=== PATIENT | female | born 1945 | race Caucasian/White ===

== ENCOUNTER 2023-12-02 20:28 | Emergency (ER) | payer MEDICARE, OTHER ==
[~2023-12-02] VITALS: Ht 152.4 cm; Wt 65.8 kg
[2023-12-02] MEDS: ONDANSETRON 4 MG TAB.RAPDIS SL ONE (22:27)
[2023-12-02] MEDS: ACETAMINOPHEN 325 MG TABLET PO ONE (22:27)
[2023-12-02] MEDS ORDERED: ONDANSETRON 4 MG TAB.RAPDIS ONE (22:29)
[2023-12-02] MEDS ORDERED: ACETAMINOPHEN ES 500 MG TABLET ONE (22:29)
[2023-12-02 23:47] LABS: APPEARANCE,URINE SLIGHTLY CLOUDY (CLEAR); BILIRUBIN,URINE NEGATIVE (NEGATIVE); BLOOD, URINE 2+ Ery/uL (NEGATIVE); COLOR,URINE YELLOW (YELLOW); KETONES,URINE NEGATIVE (NEGATIVE); LEUKOCYTE ESTERASE ,URINE 1+ (NEGATIVE); NITRITE, URINE NEGATIVE (NEGATIVE); PROTEIN,URINE 2+ mg/dl (NEGATIVE); UGLUCOSE NEGATIVE (NEGATIVE); UROBILINOGEN,URINE 0.2 EU/dL (0.2)
[2023-12-02 23:57] LABS: ADD URINE CULTURE YES; BACTERIA,URINE 2+ /HPF (None Seen); MUCUS,URINE Moderate /LPF (None Seen); WBC,URINE 21-50 /HPF (0-3)
[2023-12-03] MEDS ORDERED: NITR100C6 PO (00:01)
[2023-12-03] MEDS ORDERED: NITROFURANTOIN/MONOHYDRATE MACROCRYSTALS 100 MG CAPSULE ONE (00:12)
[2023-12-03] MEDS: NITROFURANTOIN/MONOHYDRATE MACROCRYSTALS 100 MG CAPSULE PO ONE (00:17)
[2023-12-03 00:21] VITALS: BP 146/98; TEMP 99.6; O2SAT 97
== END 2023-12-03 00:36 | disposition home or self-care (01) ==
LOC: ER 20:36
DX: N39.0 Urinary tract infection, site not specified (principal); R50.9 Fever, unspecified; I10 Essential (primary) hypertension; Z79.899 Other long term (current) drug therapy
CPT/HCPCS: 99284; 71045; 87086; 81001; Q0162

== ENCOUNTER 2023-12-05 11:45 | Inpatient (IN) | payer OTHER, MEDICARE ==
[~2023-12-05] VITALS: Ht 160 cm; Wt 65.8 kg
[~2023-12-05 11:45] MED LIST: NITR100C6 PO
[2023-12-05 12:29] LABS: APPEARANCE,URINE SLIGHTLY CLOUDY (CLEAR); BILIRUBIN,URINE 1+ (NEGATIVE); BLOOD, URINE 2+ Ery/uL (NEGATIVE); COLOR,URINE YELLOW (YELLOW); KETONES,URINE TRACE mg/dL (NEGATIVE); LEUKOCYTE ESTERASE ,URINE TRACE (NEGATIVE); NITRITE, URINE NEGATIVE (NEGATIVE); PH,URINE 5.5 (5.0-8.0); PROTEIN,URINE 2+ mg/dl (NEGATIVE); UGLUCOSE NEGATIVE (NEGATIVE)
[2023-12-05 12:34] LABS: CALCIUM, SERUM 9.2 mg/dL (8.5-10.1); CARBON DIOXIDE 23 mmol/L (21-32); CHLORIDE 102 mmol/L (98-107); CREATININE 2.4 mg/dL (0.6-1.3); GLUCOSE 114 mg/dL (74-106); SODIUM SERUM 137 mmol/L (136-145); UREA NITROGEN, BLOOD 45 mg/dL (7-18)
[2023-12-05 12:40] LABS: URINE AMORPHOUS URATE Many /HPF (None Seen)
[2023-12-05 12:41] LABS: BACTERIA,URINE Moderate /HPF (None Seen); SQUAMOUS EPITHELIAL CELL,UR Moderate /HPF (None Seen)
[2023-12-05 12:43] LABS: ADD URINE CULTURE YES
[2023-12-05 12:44] LABS: ALANINE AMINOTRANSFERASE 14 U/L (12-78); ALBUMIN 2.6 g/dL (3.4-5.0); ALKALINE PHOSPHATASE 115 U/L (46-116); ASPARTATE AMINOTRANSFERASE 19 U/L (15-37); BASOPHILS % (AUTO) 0.2 % (0.0-2.0); BILIRUBIN,DIRECT 0.2 mg/dL (0.0-0.2); BILIRUBIN,TOTAL 0.6 mg/dL (0.2-1.0); EOSINOPHILS % (AUTO) 0.4 % (0.0-6.0); HEMATOCRIT 37 % (33-45); HEMOGLOBIN 12.2 g/dL (11.5-14.8); LIPASE 85 U/L (16-77); LYMPHOCYTES # (AUTO) 1.1 K/uL (0.8-4.8); LYMPHOCYTES % (AUTO) 9.9 % (20.0-44.0); MEAN CORPUSCULAR HEMOGLOBIN 31 PG (26.0-33.0); MEAN CORPUSCULAR HGB CONC 33 g/dl (31.0-36.0); MEAN CORPUSCULAR VOLUME 94 fL (82-100); MONOCYTES % (AUTO) 9.5 % (2.0-12.0); NEUTROPHILS # (AUTO) 8.6 K/uL (1.8-8.9); PLATELET COUNT (AUTO) 296 K/uL (150-450); RED BLOOD CELL COUNT(AUTO) 3.95 MIL/uL (4.0-5.2); RED CELL DISTRIBUTION WIDTH 14.3 % (11.5-15.0); TOTAL PROTEIN, SERUM 8.4 g/dL (6.4-8.2); WHITE BLOOD COUNT (AUTO) 10.7 K/uL (4.3-11.0)
[2023-12-05] MEDS ORDERED: CEFTRIAXONE 1GM BAG (ER ONLY) 50 ML IV ONE (13:20)
[2023-12-05] MEDS: IV NS 0.9% 1,000 ML BAG IV ONE ×2 (13:23→15:00)
[2023-12-05] MEDS: CEFTRIAXONE 1 G in IV D5W 50 ML IV ONE (13:24)
[2023-12-05] MEDS ORDERED: BENA40TA8 PO (13:46)
[2023-12-05] MEDS ORDERED: AMLO-212 PO (13:46)
[2023-12-05 14:56] LABS: LACTIC ACID 2.3 mmol/L (0.4-2.0)
[2023-12-05] MEDS ORDERED: ONDANSETRON HCL/PF 4 MG/2 ML VIAL IVP PRN (16:00)
[2023-12-05] MEDS: ACETAMINOPHEN 325 MG TABLET PO PRN (16:55)
[2023-12-05 20:00] VITALS: BP 114/65; TEMP 98.4; O2SAT 95
[2023-12-05] MEDS: HEPARIN SODIUM, PORCINE 5000 UNITS/1 ML VIAL SQ SCH (21:28)
[2023-12-05 22:00] VITALS: BP 121/61; TEMP 99.1; O2SAT 94
[2023-12-06] VITALS: BP_SYST 121; BP_DIAS 60; BP_DIAS 61; TEMP 98.1; TEMP 99.1; O2SAT 94
[2023-12-06 04:00] VITALS: BP 114/59; TEMP 99.9; O2SAT 95
[2023-12-06 07:36] LABS: BASOPHILS % (AUTO) 0.2 % (0.0-2.0); EOSINOPHILS # (AUTO) 0.1 K/uL (0.0-0.7); EOSINOPHILS % (AUTO) 0.7 % (0.0-6.0); HEMATOCRIT 34 % (33-45); HEMOGLOBIN 11.4 g/dL (11.5-14.8); LYMPHOCYTES # (AUTO) 0.9 K/uL (0.8-4.8); LYMPHOCYTES % (AUTO) 10.4 % (20.0-44.0); MEAN CORPUSCULAR HEMOGLOBIN 31 PG (26.0-33.0); MEAN CORPUSCULAR HGB CONC 33 g/dl (31.0-36.0); MEAN CORPUSCULAR VOLUME 94 fL (82-100); MONOCYTES # (AUTO) 0.9 K/uL (0.1-1.30); MONOCYTES % (AUTO) 10.6 % (2.0-12.0); NEUTROPHILS # (AUTO) 6.6 K/uL (1.8-8.9); NEUTROPHILS % (AUTO) 78.1 % (43.0-81.0); PLATELET COUNT (AUTO) 243 K/uL (150-450); RED BLOOD CELL COUNT(AUTO) 3.63 MIL/uL (4.0-5.2); RED CELL DISTRIBUTION WIDTH 14.6 % (11.5-15.0); WHITE BLOOD COUNT (AUTO) 8.4 K/uL (4.3-11.0)
[2023-12-06 08:00] VITALS: BP 122/58; TEMP 99.1; O2SAT 95
[2023-12-06 08:11] LABS: CALCIUM, SERUM 8.4 mg/dL (8.5-10.1); CARBON DIOXIDE 21 mmol/L (21-32); CHLORIDE 109 mmol/L (98-107); CREATININE 1.7 mg/dL (0.6-1.3); GLUCOSE 88 mg/dL (74-106); MAGNESIUM 1.9 mg/dL (1.8-2.4); POTASSIUM 4.1 mmol/L (3.5-5.1); SODIUM SERUM 141 mmol/L (136-145); UREA NITROGEN, BLOOD 32 mg/dL (7-18)
[2023-12-06] MEDS: AMLODIPINE BESYLATE 5 MG TABLET PO SCH (08:46)
[2023-12-06] MEDS: CEFTRIAXONE 2 G in IV D5W 100 ML IV SCH (12:40)
[2023-12-06] MEDS ORDERED: CEFTRIAXONE 1 G in IV D5W 50 ML IV SCH (13:00)
[2023-12-06] MEDS: IV NS 0.9% 1,000 ML IV PRN (15:21)
[2023-12-06 16:00] VITALS: BP 120/58; TEMP 99.7; O2SAT 92
[2023-12-07] VITALS: BP 121/60; TEMP 98.1; O2SAT 92
[2023-12-07 07:01] LABS: BASOPHILS # (AUTO) 0.1 K/uL (0.0-0.2); BASOPHILS % (AUTO) 0.9 % (0.0-2.0); EOSINOPHILS # (AUTO) 0.1 K/uL (0.0-0.7); HEMATOCRIT 34 % (33-45); HEMOGLOBIN 11.1 g/dL (11.5-14.8); LYMPHOCYTES # (AUTO) 1.2 K/uL (0.8-4.8); LYMPHOCYTES % (AUTO) 19.6 % (20.0-44.0); MEAN CORPUSCULAR HEMOGLOBIN 32 PG (26.0-33.0); MEAN CORPUSCULAR HGB CONC 33 g/dl (31.0-36.0); MEAN CORPUSCULAR VOLUME 95 fL (82-100); MONOCYTES # (AUTO) 0.8 K/uL (0.1-1.30); MONOCYTES % (AUTO) 12.4 % (2.0-12.0); NEUTROPHILS % (AUTO) 65.1 % (43.0-81.0); PLATELET COUNT (AUTO) 280 K/uL (150-450); RED BLOOD CELL COUNT(AUTO) 3.54 MIL/uL (4.0-5.2); RED CELL DISTRIBUTION WIDTH 14.7 % (11.5-15.0); WHITE BLOOD COUNT (AUTO) 6.1 K/uL (4.3-11.0)
[2023-12-07 07:27] LABS: CALCIUM, SERUM 8.4 mg/dL (8.5-10.1); CARBON DIOXIDE 23 mmol/L (21-32); CHLORIDE 113 mmol/L (98-107); CREATININE 1.4 mg/dL (0.6-1.3); GLUCOSE 100 mg/dL (74-106); MAGNESIUM 1.7 mg/dL (1.8-2.4); PHOSPHORUS 2.4 mg/dL (2.5-4.9); POTASSIUM 3.7 mmol/L (3.5-5.1); SODIUM SERUM 145 mmol/L (136-145); UREA NITROGEN, BLOOD 21 mg/dL (7-18)
[2023-12-07 08:00] VITALS: BP 139/64; TEMP 97.4; O2SAT 92
[2023-12-07] MEDS: NEUTRA PHOS 1 POWD.PACKET PO SCH (09:58)
[2023-12-07] MEDS: Magnesium 1GM/D5W 100ML PREMIX 100 ML IV SCH (09:58)
[2023-12-07] MEDS ORDERED: MAGNESIUM OXIDE 400 MG TABLET PO ONE (10:00)
[2023-12-07 19:27] VITALS: BP 139/74; TEMP 97.9; O2SAT 95
[2023-12-08 00:17] VITALS: BP 139/74; TEMP 97.9; O2SAT 95
[2023-12-08 07:22] LABS: BASOPHILS % (AUTO) 0.6 % (0.0-2.0); EOSINOPHILS # (AUTO) 0.2 K/uL (0.0-0.7); HEMATOCRIT 35 % (33-45); HEMOGLOBIN 11.3 g/dL (11.5-14.8); LYMPHOCYTES # (AUTO) 1.3 K/uL (0.8-4.8); LYMPHOCYTES % (AUTO) 25.1 % (20.0-44.0); MEAN CORPUSCULAR HEMOGLOBIN 30 PG (26.0-33.0); MEAN CORPUSCULAR HGB CONC 32 g/dl (31.0-36.0); MEAN CORPUSCULAR VOLUME 95 fL (82-100); MONOCYTES # (AUTO) 0.7 K/uL (0.1-1.30); MONOCYTES % (AUTO) 12.9 % (2.0-12.0); NEUTROPHILS # (AUTO) 3.1 K/uL (1.8-8.9); NEUTROPHILS % (AUTO) 58.4 % (43.0-81.0); PLATELET COUNT (AUTO) 300 K/uL (150-450); RED BLOOD CELL COUNT(AUTO) 3.72 MIL/uL (4.0-5.2); RED CELL DISTRIBUTION WIDTH 14.7 % (11.5-15.0); WHITE BLOOD COUNT (AUTO) 5.2 K/uL (4.3-11.0)
[2023-12-08 07:35] LABS: ALANINE AMINOTRANSFERASE 11 U/L (12-78); ALBUMIN 1.8 g/dL (3.4-5.0); ALKALINE PHOSPHATASE 108 U/L (46-116); ASPARTATE AMINOTRANSFERASE 17 U/L (15-37); BILIRUBIN,TOTAL 0.2 mg/dL (0.2-1.0); CALCIUM, SERUM 8.4 mg/dL (8.5-10.1); CARBON DIOXIDE 25 mmol/L (21-32); CHLORIDE 114 mmol/L (98-107); CREATININE 1.2 mg/dL (0.6-1.3); GLUCOSE 93 mg/dL (74-106); MAGNESIUM 1.7 mg/dL (1.8-2.4); PHOSPHORUS 3.3 mg/dL (2.5-4.9); POTASSIUM 3.5 mmol/L (3.5-5.1); SODIUM SERUM 147 mmol/L (136-145); TOTAL PROTEIN, SERUM 6.7 g/dL (6.4-8.2); UREA NITROGEN, BLOOD 14 mg/dL (7-18)
[2023-12-08 08:00] VITALS: BP_SYST 142; BP_SYST 149; BP_DIAS 90; BP_DIAS 95; TEMP 98.4; O2SAT 95
[2023-12-08] MEDS: Magnesium 1GM/D5W 100ML PREMIX 100 ML IV SCH (10:13)
[2023-12-08 16:00] VITALS: BP 139/90; TEMP 98.2; O2SAT 96
[2023-12-08 18:00] VITALS: BP 139/90; TEMP 98.2; O2SAT 96
[2023-12-08 20:00] VITALS: BP 100/76; TEMP 97.8; O2SAT 97
[2023-12-09 04:00] VITALS: BP 120/71; TEMP 97.9; O2SAT 95
[2023-12-09 06:52] LABS: BASOPHILS % (AUTO) 0.5 % (0.0-2.0); EOSINOPHILS # (AUTO) 0.2 K/uL (0.0-0.7); EOSINOPHILS % (AUTO) 2.6 % (0.0-6.0); HEMATOCRIT 36 % (33-45); HEMOGLOBIN 11.8 g/dL (11.5-14.8); LYMPHOCYTES # (AUTO) 1.7 K/uL (0.8-4.8); LYMPHOCYTES % (AUTO) 26.6 % (20.0-44.0); MEAN CORPUSCULAR HEMOGLOBIN 31 PG (26.0-33.0); MEAN CORPUSCULAR HGB CONC 33 g/dl (31.0-36.0); MEAN CORPUSCULAR VOLUME 94 fL (82-100); MONOCYTES # (AUTO) 0.7 K/uL (0.1-1.30); MONOCYTES % (AUTO) 10.7 % (2.0-12.0); NEUTROPHILS # (AUTO) 3.7 K/uL (1.8-8.9); NEUTROPHILS % (AUTO) 59.6 % (43.0-81.0); PLATELET COUNT (AUTO) 353 K/uL (150-450); RED CELL DISTRIBUTION WIDTH 14.3 % (11.5-15.0); WHITE BLOOD COUNT (AUTO) 6.2 K/uL (4.3-11.0)
[2023-12-09 07:16] LABS: CALCIUM, SERUM 8.5 mg/dL (8.5-10.1); CARBON DIOXIDE 28 mmol/L (21-32); CHLORIDE 111 mmol/L (98-107); CREATININE 1.2 mg/dL (0.6-1.3); GLUCOSE 98 mg/dL (74-106); MAGNESIUM 1.9 mg/dL (1.8-2.4); PHOSPHORUS 3.1 mg/dL (2.5-4.9); POTASSIUM 3.8 mmol/L (3.5-5.1); SODIUM SERUM 146 mmol/L (136-145); UREA NITROGEN, BLOOD 12 mg/dL (7-18)
[2023-12-09 08:00] VITALS: BP 144/74; TEMP 98.2; O2SAT 94
[2023-12-09 08:59] VITALS: BP 144/74
[2023-12-09] MEDS ORDERED: CIPR500T5 PO (11:10)
== END 2023-12-09 14:02 | DRG 720 ==
LOC: ER 11:54 → TELE1 16:01 → MEDSG1 12-06 10:15
PROVIDERS: ADMIT Nurse Practitioner Acute Care; ATTEND Nurse Practitioner Acute Care
DX: A41.9 Sepsis, unspecified organism (principal); N17.0 Acute kidney failure with tubular necrosis; N39.0 Urinary tract infection, site not specified; E78.5 Hyperlipidemia, unspecified; E11.9 Type 2 diabetes mellitus without complications; B96.20 Unspecified Escherichia coli [E. coli] as the cause of diseases classified elsewhere; I10 Essential (primary) hypertension; I25.10 Atherosclerotic heart disease of native coronary artery without angina pectoris; Z79.899 Other long term (current) drug therapy
CPT/HCPCS: 36415; 71045-TC; 76770-TC; 80048-TC; 80053-TC; 80076-TC; 81001; 82962-TC; 83605-TC; 83690-TC; 83735-TC; 84100-TC; 84484-TC; 85025-TC; 87040-TC; 92526; 92611-TC; 93307-TC; 97110-TC; 97112-TC; 97116-TC; 97530-TC; 97535-TC; G0378; J0696; J1644; J3475; J3490; J7030; J7060